=== PATIENT | female | born 1980 | race Caucasian/White ===

== ENCOUNTER 2017-06-19 10:44 | Emergency (ER) | payer OTHER, MEDICAID ==
[~2017-06-19] VITALS: Ht 162.6 cm; Wt 83.9 kg
[~2017-06-19 10:44] MED LIST: AMOXICILLIN500 M1 PO; BACTRIM DS TAB1 EACH PO; CELEXA20 MG PO; IMPLANON; KEFLEX500 MG PO; NASONEX17 GM NASAL; OMEPRAZOLE20 MG PO; QVAR8.7 G1 IH; ROBAXIN 750 MG750 M1 PO; SYMBICORT160 MCG/4. INH; TRAMADOL 50 MG50 MG PO; TRIAMCINOLONE A80 G2 TOP; VENTOLIN HFA 1818 GM INH; ZOFRAN ODT4 MG PO
[2017-06-19] MEDS ORDERED: AUGMENTIN 875-1 EACH PO (11:05)
[2017-06-19] MEDS ORDERED: SUDAFED 12 HOU120 MG PO (11:06)
[2017-06-19] MEDS ORDERED: BENADRYL25 MG PO (11:07)
[2017-06-19] MEDS ORDERED: IBUPROFEN 600600 M1 PO (11:07)
[2017-06-19] MEDS ORDERED: MULTIVITAMINS1 EAC7 PO (11:07)
[2017-06-19 11:14] VITALS: BP 111/63
[2017-09-04] MEDS ORDERED: ZOFRAN ODT4 MG PO (09:13)
[2017-09-04] MEDS ORDERED: PENICILLIN VK500 M1 PO (09:13)
[2017-09-04] MEDS ORDERED: NORCO 5-325 TA1 EACH PO (09:13)
[2018-02-17] MEDS ORDERED: CELEXA20 MG PO (09:03)
== END 2017-06-19 11:15 | disposition home or self-care (01) ==
LOC: M.ERS 10:44
DX: J32.9 Chronic sinusitis, unspecified (principal); J45.909 Unspecified asthma, uncomplicated